=== PATIENT | male | born 1995 | race Caucasian/White ===

== ENCOUNTER → 2021-11-07 | Outpatient (REF) | LOC: M LAB 15:05 | PROVIDERS: ATTEND Nurse Practitioner Adult Health | DX: Z00.00 Encounter for general adult medical examination without abnormal findings (principal) ==

== ENCOUNTER → 2022-01-05 | Outpatient (REF) | LOC: M EMP 14:15 | PROVIDERS: ATTEND Family Medicine | DX: Z11.52 Encounter for screening for COVID-19 (principal) ==

== ENCOUNTER → 2022-01-09 | Outpatient (REF) | LOC: M EMP 14:08 | PROVIDERS: ATTEND Family Medicine | DX: Z11.52 Encounter for screening for COVID-19 (principal) ==

== ENCOUNTER → 2024-05-13 | Outpatient (REF) | LOC: M EMP 09:56 | PROVIDERS: ATTEND Family Medicine | DX: Z11.52 Encounter for screening for COVID-19 (principal) ==

== ENCOUNTER → 2024-10-28 | Outpatient (CLI) | payer BC, OTHER ==
[2024-10-28 15:25] LABS: PLATELET COUNT, AUTOMATED 293 10^3/uL (150-450)
[2024-10-28 15:54] LABS: ALT/SGPT 73 U/L (7.0-40); AST/SGOT 49 U/L (<34); CALCIUM LEVEL 9.9 MG/DL (8.5-10.1); CARBON DIOXIDE LEVEL 30 MMOL/L (20-31); CHLORIDE LEVEL 102 MMOL/L (98-107); CREATININE FOR GFR 1.07 MG/DL (0.70-1.30); GLOMERULAR FILTRATION RATE > 90.0 (>60); POTASSIUM SERUM 4.3 MMOL/L (3.5-5.1); SODIUM LEVEL 142 MMOL/L (136-145)
[2024-10-28 15:56] LABS: FREE T4 0.94 NG/DL (0.89-1.76)
== END ==
LOC: M LAB 14:51
PROVIDERS: ATTEND Nurse Practitioner Family
DX: F41.9 Anxiety disorder, unspecified (principal)

== ENCOUNTER → 2025-02-15 | Outpatient (CLI) | payer BC ==
[2025-02-15 16:44] LABS: ALT/SGPT 45.0 U/L (7.0-40); AST/SGOT 34.0 U/L (<34)
== END ==
LOC: M LAB 15:57
PROVIDERS: ATTEND Nurse Practitioner Family
DX: Z51.81 Encounter for therapeutic drug level monitoring (principal); F41.9 Anxiety disorder, unspecified; Z79.899 Other long term (current) drug therapy